=== PATIENT | male | born 1940 | race Caucasian/White ===

== ENCOUNTER 2023-02-24 20:31 | Inpatient (IN) | payer MEDICARE ==
[~2023-02-24] VITALS: Ht 167.6 cm; Wt 62.6 kg
[2023-02-24 20:46] LABS: BASOPHILS ABSOLUTE AUTO 0.08 K/mm3 (0.00-0.23); BASOPHILS PERCENT AUTO 0 % (0-2); EOSINOPHILS ABSOLUTE AUTO 0.01 K/mm3 (0.00-0.68); EOSINOPHILS PERCENT AUTO 0 % (0-6); Hematocrit 49.2 % (37.0-53.0); Hemoglobin 16.9 g/dL (13.5-17.5); IMMATURE GRAN ABSOLUTE AUTO 0.28 K/mm3 (0.00-0.10); IMMATURE GRAN PERCENT AUTO 1 % (0-1); LYMPHOCYTES PERCENT AUTO 3 % (21-46); MONOCYTES ABSOLUTE AUTO 1.16 K/mm3 (0.16-1.47); MONOCYTES PERCENT AUTO 4 % (4-13); Mean Corpuscular HGB 32.9 pg (26.0-34.0); Mean Corpuscular HGB Conc 34.3 g/dL (31.5-36.5); Mean Corpuscular Volume 96 fL (80-100); Mean Platelet Volume 11.3 fL (9.1-12.4); NEUTROPHILS ABSOLUTE AUTO 24.36 K/mm3 (1.96-9.15); NEUTROPHILS PERCENT AUTO 91 % (41-73); Platelet Count 396 K/mm3 (150-400); RDW Coefficient Variation 14.1 % (11.7-14.2); RDW Standard Deviation 49.8 fL (35.1-46.3); Red Blood Cell Count 5.13 M/mm3 (4.30-5.90); White Blood Cell Count 26.69 K/mm3 (4.00-11.30)
[2023-02-24 21:15] LABS: PCO2 Arterial 29.8 mmHg (35-45); PO2 Arterial 233 mmHg (80-100); pH Blood Arterial 7.04 (7.35-7.45)
[2023-02-24 21:18] LABS: Ethanol (Alcohol), Blood, Med <3 mg/dL; Magnesium, Blood 3.8 mg/dL (1.6-2.4)
[2023-02-24 21:24] LABS: Thyroid Stimulating Hormone 0.304 uIU/mL (0.360-4.800)
[2023-02-24 21:29] LABS: Alanine Aminotransfer (ALT/SGP 40 U/L (12-78); Albumin, Blood 3.6 g/dL (3.4-5.0); Albumin/Globulin Ratio 0.8 (0.8-1.8); Alk Phos 116 U/L (50-136); Anion Gap 19 mmol/L (6-16); Aspartate Aminotrans (AST/SGOT 65 U/L (12-37); Bilirubin, Total 0.6 mg/dL (0.1-1.0); Blood Urea Nitrogen 293 mg/dL (8-24); Bun/Creatinine Ratio 14.2 (12.0-20.0); CO2, Blood 11 mmol/L (21-32); CPK Creatine Kinase 1638 U/L (39-308); Calcium, Blood 9.1 mg/dL (8.5-10.1); Chloride, Blood 113 mmol/L (98-108); Globulin, Blood 4.5 g/dL (2.2-4.0); Glomerular Filtration Rate 2 (60-); Glucose, Blood 121 mg/dL (70-99); Potassium, Blood 8.5 mmol/L (3.5-5.5); Sodium, Blood 143 mmol/L (136-145); Total Protein, Blood 8.1 g/dL (6.4-8.2)
[2023-02-24 21:36] LABS: Source, Urine Clean Catch
[2023-02-24 22:13] LABS: Creatine Kinase MB 39.4 ng/mL (0.0-3.6); Creatine Kinase MB Index 2.4 (0.0-4.0)
[2023-02-24 22:19] LABS: Bilirubin, Urine Neg (Neg); Blood, Urine 2+ (Neg); Glucose Qualitative, Urine Neg (Neg); Ketones, Urine Neg (Neg); Leukocyte Esterase, Urine 1+ (Neg); Nitrite, Urine Neg (Neg); Protein, Urine 1+ (Neg); Specific Gravity, Urine 1.015 (1.003-1.022); Urobilinogen, Urine NORM (Normal)
[2023-02-24 22:39] LABS: U Amphetamine Screen DETECTED; U Barbituate Screen Not Detected; U Benzodiazapine Screen Not Detected; U Buprenorphine Screen Not Detected; U Cannabinoids Screen Not Detected; U Cocaine Screen Not Detected; U Methadone Screen Not Detected; U Methamphetamine Screen DETECTED; U Opiates Screen Not Detected; U Oxycodone Screen Not Detected; U Phencyclidine Screen Not Detected; U Propoxyphene Screen Not Detected
[2023-02-24 22:55] LABS: Appearance, Urine Clear (Clear); Color, Urine Yellow (P-Yellow)
[2023-02-24 22:57] LABS: Bacteria Few /hpf; Red Blood Cells, Urine 0-2 /hpf (0-2); Squamous Epithelial Cells Not Seen /hpf (Few)
[2023-02-25] VITALS (32 sets, daily range): BP systolic 101–157; BP diastolic 57–104
[2023-02-25 01:07] LABS: BASOPHILS ABSOLUTE AUTO 0.06 K/mm3 (0.00-0.23); BASOPHILS PERCENT AUTO 0 % (0-2); EOSINOPHILS PERCENT AUTO 0 % (0-6); Hematocrit 44.7 % (37.0-53.0); Hemoglobin 15.5 g/dL (13.5-17.5); IMMATURE GRAN ABSOLUTE AUTO 0.19 K/mm3 (0.00-0.10); IMMATURE GRAN PERCENT AUTO 1 % (0-1); LYMPHOCYTES ABSOLUTE AUTO 0.56 K/mm3 (0.84-5.20); LYMPHOCYTES PERCENT AUTO 2 % (21-46); MONOCYTES PERCENT AUTO 4 % (4-13); Mean Corpuscular HGB 32.4 pg (26.0-34.0); Mean Corpuscular HGB Conc 34.7 g/dL (31.5-36.5); Mean Corpuscular Volume 94 fL (80-100); NEUTROPHILS ABSOLUTE AUTO 27.33 K/mm3 (1.96-9.15); NEUTROPHILS PERCENT AUTO 94 % (41-73); Platelet Count 357 K/mm3 (150-400); RDW Coefficient Variation 14.1 % (11.7-14.2); RDW Standard Deviation 48.9 fL (35.1-46.3); Red Blood Cell Count 4.78 M/mm3 (4.30-5.90); White Blood Cell Count 29.24 K/mm3 (4.00-11.30)
[2023-02-25 01:21] LABS: International Normalized Ratio 1.19; Prothrombin Time Results 12.4 Sec (9.7-11.5)
[2023-02-25 01:44] LABS: Albumin, Blood 3.2 g/dL (3.4-5.0); Albumin/Globulin Ratio 0.8 (0.8-1.8); Bilirubin, Total 0.6 mg/dL (0.1-1.0); Bun/Creatinine Ratio 18.4 (12.0-20.0); Calcium, Blood 9.1 mg/dL (8.5-10.1); Creatinine, Blood 13.5 mg/dL (0.60-1.20); Globulin, Blood 3.9 g/dL (2.2-4.0); Potassium, Blood 5.2 mmol/L (3.5-5.5); Total Protein, Blood 7.1 g/dL (6.4-8.2)
[2023-02-25 02:39] LABS: Source, Urine Foley catheter
[2023-02-25 02:53] LABS: Bilirubin, Urine Neg (Neg); Blood, Urine 5+ (Neg); Glucose Qualitative, Urine Neg (Neg); Ketones, Urine 1+ (Neg); Leukocyte Esterase, Urine Neg (Neg); Nitrite, Urine Neg (Neg); Protein, Urine 1+ (Neg); Urobilinogen, Urine NORM (Normal)
--- NOTE | 2023-02-25 03:04 | NUR ---
ASSUMED CARE PT ARRIVED ON UNIT AT 0143. WILL RESPOND TO NAME BY LOOKING AT THIS RN, BUT DOES NOT TRACK. DOES NOT FOLLOW COMMANDS, LOCALIZES TO PAIN. PT'S FEET ARE BRIGHT RED AND PAINFUL TO PT. TEMP 96.9 VIA TEMPORAL. SPO2 >92% ON RA; MAP >65; HR IN THE 80-90'S. MAZARIEGOS PATENT AND DRAINING TO GRAVITY.
--- NOTE | 2023-02-25 03:07 | NUR ---
UPDATE EXTREMELY LARGE CAST REMOVED BY ARMANDO MIRELES.
[2023-02-25 03:13] LABS: Appearance, Urine Clear (Clear); Color, Urine Yellow (P-Yellow)
[2023-02-25 03:14] LABS: Amorphous Light (0-Heavy); Bacteria Few /hpf; Granular Casts 0-2 /lpf (0); Red Blood Cells, Urine 25-50 /hpf (0-2); Squamous Epithelial Cells Few /hpf (Few); White Blood Cells, Urine 0-2 /hpf (0-5)
[2023-02-25 07:37] LABS: Bun/Creatinine Ratio 21.5 (12.0-20.0); Calcium, Blood 9.1 mg/dL (8.5-10.1); Creatinine, Blood 8.71 mg/dL (0.60-1.20)
[2023-02-25 09:55] LABS: PCO2 Arterial 30.1 mmHg (35-45); PO2 Arterial 76.6 mmHg (80-100); pH Blood Arterial 7.41 (7.35-7.45)
[2023-02-25 10:12] LABS: Osmolality, Serum 415 mos/KG (275-300)
[2023-02-25 10:23] LABS: CPK Creatine Kinase 734 U/L (39-308)
--- NOTE | 2023-02-25 10:27 | NUR ---
PT WILL OPEN HIS EYES AND TURN TO VOICE INITIALLY, BUT HAS HAD NO OTHER RESPONSES TO VERBAL STIMULI. HE MOANS WITH ANY MOVEMENT. NO GAG REFLEX NOTED AND DR. DE OLIVEIRA NOTIFIED. DR. DE OLIVEIRA REQUESTED COMMUNICATIONS CONTROLLER INPUT. DR. PRASAD CONSULTED. PT'S URINE OUTPUT HAS BEEN 800ML OVER THE LAST 2 HOURS, DR. PRASAD AWARE AND GAVE ORDERS TO ADJUST IV FLUIDS TO URINE OUTPUT. LIMITED HISTORY HAS BEEN OBTAINED FROM PT ADMIT 5 YEARS AGO. ATTEMPTED TO CALL THE NUMBER FOR [facility], WHO IS LISTED ON HIS FACESHEET AND WAS ALSO MENTIONED TO BE A CAREGIVER AND HAVE POA IN THE PAST ADMISSION NOTES. THAT NUMBER JUST GOES TO BUSY SIGNAL. NO OTHER NUMBERS FOR RELATIVES/FRIENDS FOUND. ATTEMPTED TO CALL PHARMACY FOR MED LIST, BUT THEY AREN'T ANSWERING THE PHONE EITHER.
[2023-02-25 11:47] LABS: Lithium <0.20 mmol/L (0.60-1.20)
--- NOTE | 2023-02-25 12:20 | NUR ---
REASSESSMENT PT REMAINS ALERT WITH EYES OPEN, BUT ONLY RESPONDS TO TACTILE STIMULI. HE MOANS WITH ANY MOVEMENT OF HIS BODY. HE DOES APPEAR TO HAVE A WEAK GAG NOW AND HE HAS TRIED TO REACH HIS ARM UP TO GET AT THE SPO2 MONITOR ON HIS NOSE. LUNGS ARE CLEAR, RA WITH SPO2 95%. SR, BP STABLE. CONTINUES TO HAVE HIGH URINE OUTPUT, YELLOW. IV FLUIDS BEING TITRATED ACCORDINGLY. PT'S FRIEND/ROOMMATE, LUCHO, CALLED. THIS WAS THE PERSON THAT CALLED THE AMBULANCE, BUT THEY WERE NOT ABLE TO GIVE ANY FURTHER INFORMATION ABOUT PT'S HISTORY OR MEDICATIONS. THEY CONFIRMED THAT [facility] IS PT'S POA, BUT THEY DID NOT HAVE ANY CONTACT INFO FOR THEM. THE NUMBER AVAILABLE STILL IS JUST GIVING A BUSY TONE.
[2023-02-25 13:56] LABS: Albumin, Blood 3.1 g/dL (3.4-5.0); Anion Gap 5 mmol/L (6-16); Blood Urea Nitrogen 139 mg/dL (8-24); Bun/Creatinine Ratio 27.7 (12.0-20.0); CO2, Blood 24 mmol/L (21-32); Calcium, Blood 8.4 mg/dL (8.5-10.1); Chloride, Blood 135 mmol/L (98-108); Creatinine, Blood 5.02 mg/dL (0.60-1.20); Glomerular Filtration Rate 11 (60-); Glucose, Blood 311 mg/dL (70-99); Phosphorus, Blood 4.9 mg/dL (2.5-4.9); Potassium, Blood 3.6 mmol/L (3.5-5.5); Sodium, Blood 164 mmol/L (136-145)
--- NOTE | 2023-02-25 16:52 | NUR ---
SHIFT SUMMARY PT'S MENTATION HAS NOT SIGNIFICANTLY IMPROVED THROUGHOUT THE SHIFT. HE STILL OPENS HIS EYES, BUT JUST MOANS AND DOESN'T FOLLOW ANY COMMANDS. HE HAS A VERY WEAK GAG REFLEX. HOB KEPT ELEVATED THROUGHOUT THE DAY TO HELP PROTECT AIRWAY. LUNGS ARE CLEAR, RA. SR, BP STABLE. STILL HAVING HIGH URINE OUTPUT AND SODIUM LEVELS HIGH. DR. BENITO AND SHANICE AWARE. DR. PRASAD ORDERED TO CONTINUE MATCHING VOLUMES THIS EVENING. NEXT NA CHECK AT 1900. STILL UNABLE TO CONTACT FAMILY OR CAREGIVER.
[2023-02-25 20:09] LABS: Bun/Creatinine Ratio 36.6 (12.0-20.0); Calcium, Blood 8.5 mg/dL (8.5-10.1); Creatinine, Blood 2.62 mg/dL (0.60-1.20); Potassium, Blood 3.4 mmol/L (3.5-5.5)
[2023-02-26] VITALS (24 sets, daily range): BP systolic 89–156; BP diastolic 52–79
[2023-02-26 01:12] LABS: Bun/Creatinine Ratio 41.4 (12.0-20.0); Calcium, Blood 8.5 mg/dL (8.5-10.1); Creatinine, Blood 1.69 mg/dL (0.60-1.20); Potassium, Blood 3.8 mmol/L (3.5-5.5)
[2023-02-26 04:03] LABS: BASOPHILS ABSOLUTE AUTO 0.07 K/mm3 (0.00-0.23); BASOPHILS PERCENT AUTO 0 % (0-2); EOSINOPHILS PERCENT AUTO 0 % (0-6); Hematocrit 43.4 % (37.0-53.0); Hemoglobin 15.2 g/dL (13.5-17.5); IMMATURE GRAN ABSOLUTE AUTO 0.27 K/mm3 (0.00-0.10); IMMATURE GRAN PERCENT AUTO 1 % (0-1); LYMPHOCYTES ABSOLUTE AUTO 1.27 K/mm3 (0.84-5.20); LYMPHOCYTES PERCENT AUTO 5 % (21-46); MONOCYTES ABSOLUTE AUTO 1.28 K/mm3 (0.16-1.47); MONOCYTES PERCENT AUTO 5 % (4-13); Mean Corpuscular HGB 32.7 pg (26.0-34.0); Mean Corpuscular Volume 93 fL (80-100); Mean Platelet Volume 10.9 fL (9.1-12.4); NEUTROPHILS ABSOLUTE AUTO 22.17 K/mm3 (1.96-9.15); NEUTROPHILS PERCENT AUTO 88 % (41-73); NRBC ABSOLUTE 0.04 K/mm3 (0.00-0.02); NRBC Auto 0.2 /100 WBC (0.0-0.2); Platelet Count 243 K/mm3 (150-400); RDW Coefficient Variation 14.1 % (11.7-14.2); RDW Standard Deviation 47.6 fL (35.1-46.3); Red Blood Cell Count 4.65 M/mm3 (4.30-5.90); White Blood Cell Count 25.06 K/mm3 (4.00-11.30)
[2023-02-26 04:15] LABS: International Normalized Ratio 1.35; Prothrombin Time Results 13.9 Sec (9.7-11.5)
[2023-02-26 04:26] LABS: Albumin, Blood 2.9 g/dL (3.4-5.0); Albumin/Globulin Ratio 0.8 (0.8-1.8); Bilirubin, Direct 0.2 mg/dL (0.0-0.3); Bilirubin, Indirect 0.6 mg/dL (0.1-0.7); Bilirubin, Total 0.8 mg/dL (0.1-1.0); Bun/Creatinine Ratio 42.7 (12.0-20.0); Calcium, Blood 8.6 mg/dL (8.5-10.1); Creatinine, Blood 1.5 mg/dL (0.60-1.20); Globulin, Blood 3.5 g/dL (2.2-4.0); Magnesium, Blood 2.5 mg/dL (1.6-2.4); Phosphorus, Blood 2.1 mg/dL (2.5-4.9); Potassium, Blood 3.9 mmol/L (3.5-5.5); Total Protein, Blood 6.4 g/dL (6.4-8.2)
--- NOTE | 2023-02-26 06:19 | NUR ---
YSHIFT SUMMARY: NO ACUTE CHANGES THROUGHOUT THE NIGHT. PT REMAINS AMS WITH RESPONSE TO VERBAL STIMULI BY OPENING EYES AND TRACKING IN THE ROOM; PT NOT ABLE TO FOLLOW ANY DIRECTIONS OR PARTICIPATE IN CONVERSATION. PT MOANS INTERMITTENLY AND PRODUCES NO WORDS. PT STARTED THE NIGHT ON RA AND MAINTAINED SPO2 96<; PT DESATS DOWN TO 86-88, NC PLACED AND @ 4LPM IN MOUTH WHILE PT IS SLEEPING AND SPO2 98<. SR ON MONITOR WITH HR 60-70'S AND SBP 100-110. PT HAS HYPOACTIVE BS AND NO N/V NOTED; PT HAS NOT HAD A BM THIS SHIFT. PT HAS TEMP MAZARIEGOS IN PLACE THAT IS DRAINING TO GRAVITY; CHRIS URINE, POLYURIA, AND URINE OUTPUT THIS SHIFT AT 1150. PT SKIN IS FRAGILE WITH SCATTER BRUISES AND WARM TEMP. PIV X 2 TO R. ARM. SODIUM DOWN TO 159 WITH THIS MORNING LABS. BED LOWERED, CALL LIGHT IN REACH, WILL CONTINUE TO MONITOR UNTIL ONCOMING RN ARRIVES.
--- NOTE | 2023-02-26 09:36 | NUR ---
ASSUMED CARE OF KENDALL AT 0700, HE IS NONVERBAL. HE IS NOT LOOKING AT ME OR FOLLOWING COMMANDS. HE MAKES NO SOUNDS. HE IS TURNED AND MOVED AND REPOSITIONED WITHOUT SOUND. HE HAS CONGESTED COUGH NON PRODUCTIVE. HE HAS A FOUL AROMA. HIS FINGERNAILS AND TOE NAILS ARE BLACK, FINGERNAILS CLEANED WITH ALCOHOL WIPES AND BROWN STUFF REMOVED FROM ALL 10. PT WITH PROTECTIVE RESPONSES TO TOUCH, ARMS CROSSING, SHOULDERS COVERED, ETC. BUT NON VERBAL. CATHETER WITH BROWN DISCHARGE, DARK YELLOW RETURN. IV X 3 IN RIGHT FOREARM. BP STABLE.
--- NOTE | 2023-02-26 10:47 | NUR ---
DOCTOR IN ROOM AT 0930 SPEAKING WITH PATIENT. WHEN DOCTOR ASKED IF PATIENT COULD HEAR HIM HE VERBALLY RESPONDED "YES", WHEN DOCTOR ASKED IF PATIENT WAS IN PAIN THE PATIENT VERBALLY RESPONDED "NO". THE PATIENT HAS NOT VERBALLY RESPONDED WHEN ASKED QUESTIONS BY THIS TURKEY PINNER.
--- NOTE | 2023-02-26 11:49 | NUR ---
IN ROOM WITH PATIENT AND RN, THE PATIENT WOULD LOOK AT ME WHEN QUED TO TO. THE PATIENT GROANED WHEN ASKED IF HE WAS IN ANY PAIN. ORAL CARE PERFORMED, THE PATIENT WAS RESISTANT TO OPEN MOUTH.
--- NOTE | 2023-02-26 15:50 | NUR ---
IN ROOM WITH RN, PATIENT OCCASIONALLY ANSWERED YES OR NO QUESTIONS. PATIENT ANSWERED THAT HE WAS IN THE HOSPITAL WHEN ASKED BY NURSE WHERE HE WAS. PATIENT FOLLOWED VERBAL COMMAND TO LOOK AT THIS STUDENT NURSE WHEN ASKED TO. WILL CONTINUE TO MONITOR PATIENT.
--- NOTE | 2023-02-26 17:57 | NUR ---
SHIFT SUMMARY PT'S MENTAL STATUS HAS IMPROVED THE DAY HAS PROGRESSED. HE HAS OCCASIONALLY ANSWERED YES OR NO QUESTIONS REGARDING WHERE HE IS, IF HE IS IN PAIN, AND IF HE CAN HEAR WHO IS TALKING TO HIM. PT WILL ANSWER ONE OR TWO QUESTIONS AND THEN MOAN WHEN ASKED MORE QUESTIONS. PT WAS ON 4L N/C AT THE BEGINNING OF THE SHIFT AND IS NOW ON ROOM AIR AT 96%. PT CONTINUES TO HAVE HYPOACTIVE BOWEL SOUNDS AND HAS NOT HAD A BM THIS SHIFT. PT IS STILL NPO. PT HAS A TEMP MAZARIEGOS THAT IS PATENT AND DRAINING TO GRAVITY. PT'S URINE OUTPUT HAS GONE DOWN COMPARED TO NOC SHIFT, 960 mL FOR THIS SHIFT. PT HAS 3 PIVS IN HIS RIGHT ARM. THE PATIENT'S BED IS LOWERED, HIS BED ALARM IS ON, AND HIS CALL LIGHT IS IN REACH. WILL CONTINUE TO MONITOR UNTIL CARE IS ASSUMED BY [facility] SHIFT NURSE.
--- NOTE | 2023-02-26 18:29 | NUR ---
I CONCUR WITH NOTES AND ASSESSMENTS MADE BY BUTTON PUSHER JAGUAR MEDEL, WHILST CARING FOR THIS PATIENT. WE HAVE PERFORMED HIS CARE TOGETHER T/O THE DAY. CHARTING HAS BEEN DONE TOGETHER T/O THE SHIFT.
--- NOTE | 2023-02-26 22:53 | NUR ---
ASSUMPTION OF CARE/ASSESSMENT: ASSUMED CARE OF PT AT 1900. PT LAYING IN BED AND ALERTNESS APPEARS TO HAVE IMPROVED THROUGHOUT THE DAY. PT IS ALERT AND RESPONSIVE TO VERBAL STIMULI; HE WAS ABLE TO SAY HELLO AFTER BEING GREETED BY THIS RN, THEN WHEN ASKED IF HE WAS IN ANY PAIN THE PT STATED "NO" . PT STILL NOT ABLE TO ANSWER ORIENTING QUESTIONS AND IS NOT FOLLOWING COMMANDS. PT ON RA WITH CLEAR LUNG SOUNDS, DIM BASES; SPO2 98<, RR 18-22. SR ON MONITOR WITH HR 70-80'S AND SBP 120'S. PT HAS HYPOACTIVE BS, ABD FLAT, AND NON-TENDER, AND REMAINS NPO AT THIS TIME. TEMP MAZARIEGOS IN PLACE AND DRAINING TO GRAVITY; CHRIS URINE. PPP X 4, SKIN WARM. BED LOWERED, CALL LIGHT IN REACH, WILL CONTINUE TO MONITOR.
[2023-02-27] VITALS (23 sets, daily range): BP systolic 103–167; BP diastolic 49–130
[2023-02-27 01:45] LABS: Calcium, Ionized (POC) 1.14 mmol/L (1.10-1.46); Chloride (POC) 124 mmol/L (98-108); Creatinine (POC) 17.3 mg/dL (0.8-1.3); Glucose (ISTAT POC) 201 mg/dL (70-99); Hemoglobin (POC) 16.7 g/dL (13.5-17.5); Potassium (POC) 5.7 mmol/L (3.5-5.5); Sodium (POC) 152 mmol/L (135-148); Total CO2 (POC) 13 mmol/L (21-32)
[2023-02-27 03:46] LABS: BASOPHILS ABSOLUTE AUTO 0.08 K/mm3 (0.00-0.23); BASOPHILS PERCENT AUTO 0 % (0-2); EOSINOPHILS ABSOLUTE AUTO 0.24 K/mm3 (0.00-0.68); EOSINOPHILS PERCENT AUTO 1 % (0-6); Hematocrit 39.3 % (37.0-53.0); Hemoglobin 13.2 g/dL (13.5-17.5); IMMATURE GRAN ABSOLUTE AUTO 0.27 K/mm3 (0.00-0.10); IMMATURE GRAN PERCENT AUTO 1 % (0-1); LYMPHOCYTES ABSOLUTE AUTO 2.86 K/mm3 (0.84-5.20); LYMPHOCYTES PERCENT AUTO 9 % (21-46); MONOCYTES ABSOLUTE AUTO 1.84 K/mm3 (0.16-1.47); MONOCYTES PERCENT AUTO 6 % (4-13); Mean Corpuscular HGB 32.6 pg (26.0-34.0); Mean Corpuscular HGB Conc 33.6 g/dL (31.5-36.5); Mean Corpuscular Volume 97 fL (80-100); Mean Platelet Volume 11.8 fL (9.1-12.4); NEUTROPHILS ABSOLUTE AUTO 26.41 K/mm3 (1.96-9.15); NEUTROPHILS PERCENT AUTO 83 % (41-73); NRBC ABSOLUTE 0.11 K/mm3 (0.00-0.02); NRBC Auto 0.3 /100 WBC (0.0-0.2); Platelet Count 191 K/mm3 (150-400); RDW Coefficient Variation 14.6 % (11.7-14.2); RDW Standard Deviation 51.9 fL (35.1-46.3); Red Blood Cell Count 4.05 M/mm3 (4.30-5.90)
[2023-02-27 04:38] LABS: Magnesium, Blood 1.6 mg/dL (1.6-2.4)
[2023-02-27 04:49] LABS: Bun/Creatinine Ratio 27.5 (12.0-20.0); Creatinine, Blood 0.77 mg/dL (0.60-1.20); Phosphorus, Blood 1.6 mg/dL (2.5-4.9); Potassium, Blood 3.4 mmol/L (3.5-5.5)
--- NOTE | 2023-02-27 06:31 | NUR ---
SHIFT SUMMARY: NO ACUTE CHANGES OVER NIGHT. PT WAS ABLE TO SLEEP FOR A LITTLE BIT. VSS THROUGHOUT THE NIGHT. PT CONTINUOUSLY PULLED OFF EKG LEAD AND PULSE OX AND THEN ATTEMPTED TO PULL OFF IV'S; PT PLACED IN MITTEN RESTRAINTS TO PROTECT LINES/CORDS. PT MENTATION REMAINS THE SAME. NA THIS MORNING DROPPED FROM 159 TO 147. URINE OUTPUT THIS SHIFT AT 550 MLS. BED LOWERED, CALL LIGHT IN REACH, WILL CONTINUE TO MONITOR UNTIL ONCOMING RN ARRIVES.
--- NOTE | 2023-02-27 08:00 | NUR ---
INITIAL ASSESSMENT PATIENT ALERT; ORIENTED TO SELF AND FOLLOWING SOME COMMANDS. PATIENT FLAT AND WITHDRAWN. PATIENT WEAK BUT ABLE TO MOVE ALL EXTREMITIES. PATIENT HAS TEMP OF 100.6 DEGREES FAHRENHEIT THIS SHIFT. MITTENS ON PATIENT TRIES TO PULL AT LINES AND CORDS. PATIENT HAS OCCASIONAL NONPRODUCTIVE COUGH. PATIENT IN SR, HR 60S TO 70S. SBP 120S TO 130S. HYPERACTIVE BOWEL SOUNDS NOTED. DATE OF LAST BM UNKNOWN. MAZARIEGOS DRAINING CHRIS COLORED URINE. SKIN DRY, FRAGILE, PALE, BRUISED. REDDENED HANDS, FEET, COCCYX NOTED. PLAQUE NOTED IN MOUTH. SCAB TO R INDEX FINGER. D5 INFUSING AT 200 MLS/ HOUR. BED LOW, CALL LIGHT IN REACH. WILL CONTINUE TO MONITOR PATIENT FREQUENTLY THROUGHOUT SHIFT.
--- NOTE | 2023-02-27 12:33 | NUR ---
PATIENT TEMP OF 99.4 DEGREES FAHRENHEIT. PATIENT WAS ABLE TO STATE NAME THIS TIME INSTEAD OF JUST SAYING "YES" WHEN ASKED IF NAME WAS KENDALL; OTHERWISE NEURO STATUS REMAINS UNCHANGED. HR IN THE 70S. SBP IN THE 140S. NO OTHER ACUTE CHANGES TO NOTE ON AT THIS TIME. NO SIGNS OF PAIN OR DISCOMFORT NOTED. WILL CONTINUE TO MONITOR.
--- NOTE | 2023-02-27 14:49 | NUR ---
DR. BENITO UPDATED ON PATIENT STATUS. NO ORDERS RECEIVED AT THIS TIME.
--- NOTE | 2023-02-27 16:45 | NUR ---
PATIENT HAS TEMP OF 99.8 DEGREES FAHRENHEIT. HR IN THE 70S. SBP IN THE 120S. BLOOD SUGAR 117. COMPLETE BED BATH PERFORMED. NO OTHER ACUTE CHANGES TO NOTE ON AT THIS TIME. WILL CONTINUE TO MONITOR.
[2023-02-27 17:20] LABS: Bun/Creatinine Ratio 21.6 (12.0-20.0); Calcium, Blood 8.8 mg/dL (8.5-10.1); Creatinine, Blood 0.7 mg/dL (0.60-1.20); Phosphorus, Blood 3.1 mg/dL (2.5-4.9); Potassium, Blood 3.7 mmol/L (3.5-5.5)
--- NOTE | 2023-02-27 18:54 | NUR ---
SHIFT SUMMARY PATIENT NAPPED ON AND OFF THROUGHOUT SHIFT. PATIENT REMAINED LETHARGIC. PATIENT REMAINS ORIENTED TO SELF AND FOLLOWING SOME COMMANDS. PATIENT HAD TMAX OF 100.6 DEGREES FAHRENHEIT. PATIENT HAD NO SIGNS OF PAIN T/O SHIFT. PATIENT REMAINED WEAK BUT ABLE TO MOVE ALL EXTREMITIES AND HELP A LITTLE WITH TURNS. MITTENS REMAINED ON PATIENT CONTINUED TO TRY AND PICK AT LINES AND CORDS. PATIENT REMAINED WITHDRAWN AND WITH FLAT AFFECT. PATIENT REMAINED SATTING 90% AND GREATER ON RA. PATIENT SB TO SR, HR 50S TO 70S. SBP LOW 100S TO 140S. 2050 MLS OF YELLOW COLORED URINE OUT FROM MAZARIEGOS. NO CHANGES TO SKIN NOTED. PATIENT REPOSTIONED Q2H. COMPLETE BED BATH PERFORMED. D5 DECREASED FROM 200 MLS/ HOUR TO 100 MLS/ HOUR AND THEN AGAIN TO 50 MLS/ HOUR BY THE END OF THE SHIFT. PATIENT RECEIVED 30 MM KPHOS AND 2 G CALCIUM REPLACEMENTS THIS SHIFT. DENTAL HYGEINIST SAW PATIENT TODAY. SPEECH THERAPY SAW PATIENT TODAY BUT PATIENT WAS UNABLE TO PERFORM SWALLOW EVAL. BLOOD SUGARS 84, 96 AND 117 THIS SHIFT. PATIENT APPEARS COMFORTABLE AT THIS TIME. BED LOW, CALL LIGHT IN REACH. REPORT WILL BE GIVEN TO ASSUMING DIRECT MARKETING EXECUTIVE NURSE SHORTLY.
--- NOTE | 2023-02-27 20:00 | NUR ---
ASSUMED CARE PT IS CONFUSED, BUT WAS ABLE TO TELL THIS NURSE THAT HE WAS IN THE HOSPITAL AND GIVE AN ACCURATE BIRTHDATE; RESPONDED W/ I DON'T KNOW TO THE REST OF ORIENTATION QUESTIONS. DOES NOT FOLLOW COMMANDS WELL. SPO2 >92% ON RA; MAP >65. D5 RUNNING AT 50MLS/HR. PT APPEARS TO BE SENSITIVE TO ANY KIND OF INTERVENTION/REPOSITIONING AND PREFERS TO BE LEFT ALONE. T-MAX THIS SHIFT IS 100.0F. MAZARIEOGS CATHETER PATENT AND DRAINING TO GRAVITY.
[2023-02-28] VITALS (15 sets, daily range): BP systolic 89–130; BP diastolic 52–67
[2023-02-28 04:15] LABS: BASOPHILS PERCENT AUTO 0 % (0-2); EOSINOPHILS PERCENT AUTO 1 % (0-6); Hematocrit 38.3 % (37.0-53.0); Hemoglobin 13.1 g/dL (13.5-17.5); IMMATURE GRAN ABSOLUTE AUTO 0.39 K/mm3 (0.00-0.10); IMMATURE GRAN PERCENT AUTO 1 % (0-1); LYMPHOCYTES ABSOLUTE AUTO 2.16 K/mm3 (0.84-5.20); LYMPHOCYTES PERCENT AUTO 6 % (21-46); MONOCYTES ABSOLUTE AUTO 1.93 K/mm3 (0.16-1.47); MONOCYTES PERCENT AUTO 5 % (4-13); Mean Corpuscular HGB 32.8 pg (26.0-34.0); Mean Corpuscular HGB Conc 34.2 g/dL (31.5-36.5); Mean Corpuscular Volume 96 fL (80-100); NEUTROPHILS ABSOLUTE AUTO 32.22 K/mm3 (1.96-9.15); NEUTROPHILS PERCENT AUTO 87 % (41-73); NRBC ABSOLUTE 0.19 K/mm3 (0.00-0.02); NRBC Auto 0.5 /100 WBC (0.0-0.2); Platelet Count 206 K/mm3 (150-400); RDW Coefficient Variation 13.9 % (11.7-14.2); RDW Standard Deviation 49.1 fL (35.1-46.3)
[2023-02-28 04:33] LABS: Bun/Creatinine Ratio 20.5 (12.0-20.0); Calcium, Blood 7.9 mg/dL (8.5-10.1); Creatinine, Blood 0.63 mg/dL (0.60-1.20); Magnesium, Blood 1.4 mg/dL (1.6-2.4); Phosphorus, Blood 1.8 mg/dL (2.5-4.9); Potassium, Blood 3.1 mmol/L (3.5-5.5)
--- NOTE | 2023-02-28 05:05 | NUR ---
SHIFT SUMMARY NO ACUTE EVENTS OVERNIGHT. PT'S NEURO STATUS APPEARS TO BE THE SAME SINCE LAST NOTE; OCCASIONALLY WILL FOLLOW COMMANDS. PT REMAINS ON RA. MAZARIEGOS CATHETER IS PATENT AND DRAINING TO GRAVITY.
--- NOTE | 2023-02-28 08:00 | NUR ---
INITIAL ASSESSMENT PATIENT ALERT AND ORIENTED TO SELF, TOWN, AND HOSPITAL. PATIENT STATES THE YEAR IS [birth year]. PATIENT ABLE TO FOLLOW SOME SIMPLE COMMANDS. PATIENT IS WEAK BUT ABLE TO MOVE ALL EXTREMITIES. PATIENT FLAT AND WITHDRAWN. MITTENS OFF PATIENT NOT TRYING TO PULL AT LINES OR CORDS AT THIS TIME. PATIENT HAS TEMP OF 100.4 DEGREES FAHRENHEIT. PATIENT DENIES PAIN. PATIENT SATTING 90% AND GREATER ON RA. PATIENT SR WITH PACS, HR 60S TO 70S. SBP 90S TO 1-TEENS. HYPERACTIVE BOWEL SOUNDS NOTED. SWALLOW EVAL THIS AM. MAZARIEGOS DRAINING CHRIS COLORED URINE. SKIN DRY, FRAGILE, BRUISED. REDDENED HANDS, FEET AND COCCYX. D5 INFUSING AT 50 MLS/ HOUR. PATIENT RECEIVING MAG AND KPHOS REPLACEMENTS THIS AM. BS 105 THIS AM. BED LOW, CALL LIGHT IN REACH. WILL CONTINUE TO MONITOR PATIENT FREQUENTLY THIS SHIFT.
--- NOTE | 2023-02-28 08:30 | NUR ---
DR. MAO UPDATED ON PATIENT STATUS. INFORMED THAT PATIENT HAD TMAX OF 100.6 ON LIVESTOCK NUTRITIONIST. INFORMED THAT PATIENT RECEIVING MAG AND KPHOS REPLACEMENTS AT THIS TIME. INFORMED THAT WBC INCREASED TODAY. HAD DR. MAO ACCESS WOUND ON R INDEX FINGER. INFORMED THAT D5 REMAINS AT 50 MLS/ HOUR. INFORMED THAT IONIZED CALCIUM 10.4 THIS AM. INFORMED THAT SPEECH SAW PATIENT AND PLACED ON MECHANICAL SOFT DIET AT THIS TIME.
--- NOTE | 2023-02-28 10:33 | NUR ---
RECORDS TRIED TO OBTAIN RECORDS FROM [facility]. [facility] STATED THAT PATIENT HAD NOT BEEN SEEN THERE SINCE 2017 AND WAS ONLY SEEN OT IN THE URGENT CARE. INFORMED THAT MARKUS BA NOW AT [facility] [place] AND MAYBE THEY WOULD HAVE MORE RECORDS. AUTHORIZATION FOR USE OR DISCLOSURE OF PHI FAXED TO [facility] FOR PATIENT RECORDS.
--- NOTE | 2023-02-28 12:33 | NUR ---
PATIENT HAS TEMP OF 99.6 DEGREES FAHRENHEIT. NEURO STATUS UNCHANGED FROM THIS AM. HR 50S TO 60S. SBP 1-TEENS TO 130S. BLOOD SUGAR 116. PATIENT EATING MECHANICAL SOFT DIET AT THIS TIME. NO OTHER ACUTE CHANGES TO NOTE ON AT THIS TIME. WILL CONTINUE TO MONITOR.
--- NOTE | 2023-02-28 14:45 | NUR ---
SHIFT SUMMARY PATIENT HAS NAPPED ON AND OFF THROUGHOUT SHIFT. PATIENT MENTATION CONTINUEST TO IMPROVE. PATIENT ORIENTED TODAY TO SELF, TOWN, HOSPITAL, AND FOLLOWING SOME SOMPLE COMMANDS. PATIENT LETHARGIC AND THEREFORE DOES NOT HAVE MUCH MOTIVATION. PATIENT HAD TMAX OF 100.7 DEGREES FAHRENHEIT THIS SHIFT. PATIENT HAD NO COMPLAINTS OF PAIN. MITTENS REMOVED THIS AM AND PATIENT DID NOT TRY TO PULL AT ANY LINES OR CORDS. PATIENT REMAINED SATTING 90% AND GREATER ON RA. PATIENT SB TO SR WITH PACS, HR 50S TO 70S. SBP 80S TO 130S. NO BM THIS SHIFT. PATIENT PLACED ON MECHANICAL SOFT DIET THIS AM AND TOLERATED WELL, HOWEVER DOES NOT HAVE MUCH OF AN APPETITE. MAZARIEGOS REMAINED DRAINING CHRIS COLORED URINE. PATIENT TO BE BLADDER TRAINED AND MAZARIEGOS REMOVED. NO CHANGES TO SKIN NOTED. PATIENT REPOSITIONED Q2H. D5 REMAINS INFUSING AT 50 MLS/ HOUR. BLOOD SUGARS 105 AND 116 THIS SHIFT. PATIENT RECEIVED 2 G MAG AND 30 MM KPHOS THIS AM FOR REPLACEMENT. PT AND OT WORKED WITH PATIENT THIS SHIFT. REQUEST FAXED TO [facility] FOR PATIENT RECORDS. PATIENT HAS BEEN SUCCESSFULLY TRANSFERRED TO MEDICAL FLOOR, ROOM 352. ALL BELONGINGS SENT WITH PATIENT.
[2023-03-01 02:18] VITALS: BP 118/60
--- NOTE | 2023-03-01 05:13 | NUR ---
SUMMARY: BLADDER TRAINED PATIENT OVERNIGHT AND REMOVED MAZARIEGOS AT 0230. PATIENT VERBALIZED THAT HE NEEDED TO VOID BOTH TIMES CATHETER WAS CLAMPED. PATIENT AGITATED WITH STAFF WE WOULD NOT ALLOW HIM TO WALK TO RESTROOM. PATIENT STILL CONFUSED AOX2. PATIENT VERY WEAK 2X ASSIST TO TURN HIM IN BED. REPOSITIONED Q2 THROUGHOUT NIGHT. NO FEVERS, VSS. PROVIDED PATIENT URINAL THIS MORNING AFTER MAZARIEGOS REMOVEAL AND INSTRUCTED HIM TO URINATE IN IT WHEN HE FELT THE NEED TO. PATIENT STATED HE WOULD NOT, WHEN STAFF ASKING HIM WHY HE STATED BECAUSE HE DID NOT WANT TO. WILL CONTINUE TO REDIRECT AND EDUCATE. GLUCOSE STABLE CHECKED Q4HR.
[2023-03-01 06:17] LABS: BASOPHILS ABSOLUTE AUTO 0.08 K/mm3 (0.00-0.23); BASOPHILS PERCENT AUTO 0 % (0-2); EOSINOPHILS ABSOLUTE AUTO 0.68 K/mm3 (0.00-0.68); EOSINOPHILS PERCENT AUTO 3 % (0-6); Hematocrit 37.4 % (37.0-53.0); Hemoglobin 12.6 g/dL (13.5-17.5); IMMATURE GRAN ABSOLUTE AUTO 0.45 K/mm3 (0.00-0.10); IMMATURE GRAN PERCENT AUTO 2 % (0-1); LYMPHOCYTES ABSOLUTE AUTO 3.35 K/mm3 (0.84-5.20); LYMPHOCYTES PERCENT AUTO 13 % (21-46); MONOCYTES PERCENT AUTO 8 % (4-13); Mean Corpuscular HGB Conc 33.7 g/dL (31.5-36.5); Mean Corpuscular Volume 98 fL (80-100); Mean Platelet Volume 12.5 fL (9.1-12.4); NEUTROPHILS ABSOLUTE AUTO 18.64 K/mm3 (1.96-9.15); NEUTROPHILS PERCENT AUTO 74 % (41-73); NRBC ABSOLUTE 0.17 K/mm3 (0.00-0.02); NRBC Auto 0.7 /100 WBC (0.0-0.2); Platelet Count 235 K/mm3 (150-400); RDW Standard Deviation 49.9 fL (35.1-46.3); Red Blood Cell Count 3.82 M/mm3 (4.30-5.90)
[2023-03-01 06:40] LABS: Albumin, Blood 2.2 g/dL (3.4-5.0); Albumin/Globulin Ratio 0.6 (0.8-1.8); Bilirubin, Total 0.7 mg/dL (0.1-1.0); Bun/Creatinine Ratio 16.8 (12.0-20.0); Calcium, Blood 8.3 mg/dL (8.5-10.1); Creatinine, Blood 0.71 mg/dL (0.60-1.20); Globulin, Blood 3.8 g/dL (2.2-4.0); Magnesium, Blood 1.7 mg/dL (1.6-2.4); Phosphorus, Blood 1.5 mg/dL (2.5-4.9); Potassium, Blood 2.8 mmol/L (3.5-5.5)
[2023-03-01 08:09] VITALS: BP 119/60
[2023-03-01 15:34] VITALS: BP 117/56
--- NOTE | 2023-03-01 16:46 | NUR ---
SHIFT SUMMARY PATIENT IS ALERT BUT NOT ORIENTED. PATIENT HAS HAD NO ACUTE EVENTS THIS SHIFT. VITAL SIGNS REVIEWED. PATIENT HAD FLUIDS STOPPED BY DR MAO. PATIENT HAS NOT COMPLAINED OF PAIN, NAUSEA, SOB OR VOMITTING. BED IN LOCKED AND LOWEST POSITION. CALL LIGHT IN PLACE. WILL MONITOR UNTIL SHIFT CHANGE.
[2023-03-01 20:08] VITALS: BP 115/59
--- NOTE | 2023-03-02 05:22 | NUR ---
SHIFT SUMMARY PT IS A&O 2, 2 PERSON ASSIST TO COMMODE, RA, VSS, NO COMPLAINTS OF PAIN OR DISCOMFORT THIS SHIFT OR ACUTE OVERNIGHT EVENTS CONTINUE POC
[2023-03-02 06:32] LABS: Calcium, Blood 8.3 mg/dL (8.5-10.1); Creatinine, Blood 0.71 mg/dL (0.60-1.20); Phosphorus, Blood 1.5 mg/dL (2.5-4.9)
[2023-03-02 07:19] VITALS: BP 111/61
[2023-03-02 14:11] LABS: IMMUNOGLOBULIN A, QN, SERUM 447 mg/dL (61-437); IMMUNOGLOBULIN G, QN, SERUM 938 mg/dL (603-1613); IMMUNOGLOBULIN M, QN, SERUM 151 mg/dL (15-143)
[2023-03-02 15:09] VITALS: BP 144/77
[2023-03-02 15:55] LABS: Source, Urine Foley catheter
[2023-03-02 16:00] LABS: Appearance, Urine Clear (Clear); Bilirubin, Urine Neg (Neg); Blood, Urine 2+ (Neg); Color, Urine Yellow (P-Yellow); Glucose Qualitative, Urine Neg (Neg); Ketones, Urine Neg (Neg); Leukocyte Esterase, Urine Neg (Neg); Nitrite, Urine Neg (Neg); Protein, Urine 1+ (Neg); Urobilinogen, Urine NORM (Normal)
[2023-03-02 16:09] LABS: Bacteria Few /hpf; Squamous Epithelial Cells Rare /hpf (Few)
[2023-03-02 19:27] VITALS: BP 113/56
--- NOTE | 2023-03-02 21:12 | NUR ---
SHIFT SUMMARY: PATIENT WAS ALERT AND ABLE TO ANSWER QUESTIONS APPROPRIATELY, BUT HAD TO BE SPOKEN TO LOUD/WITH A DEEP VOICE WITH HOW [place] THE PATIENT IS. PATIENT WAS STRAIGHT CATHED ON NIGHTSHIFT ONCE AND AGAIN ON DAYSHIFT. AFTER SECOND STRAIGHT CATHING OF PATIENT THIS NURSE CALLED DR. RAMOS FOR AN ORDER FOR A MAZARIEGOS SINCE PATIENT HAS NO SENSATION OF A FULL BLADDER AND IS UNABLE TO VOID HIMSELF. DR. RAMOS ORDERED A RENAL ULTRASOUND TO RULE OUT AN ENLARGED PROSTATE FIRST BEFORE PLACING A MAZARIEGOS. THIS NURSE READ THE RESULTS FROM THE ULTRASOUND TO DR. RAMOS ON THE PHONE AND SHE SAID TO PLACE THE MAZARIEGOS. MAZARIEGOS IS DRAINING PER GRAVITY WITH DARK CHRIS URINE WITH SEDIMENT. PATIENT TOLERATES SMALL AMOUNTS OF LIQUID INTAKE. PATIENT WAS ABLE TO WORK WITH PT AND DID SIT IN THE RECLINER FOR LUNCH. THIS NURSE ALSO REQUESTED AND RECIEVED ORDERS FOR BOWEL SUPPORT SINCE PATIENT WAS COMPLAINING OF "A HARD POOP UP THERE". PATIENTS DAUGHTER WAS ABLE TO COME BY AND SEE THE PATIENT WHICH MADE THE PATIENT SMILE. PATIENT IS LAYING IN BED WITH CALL LIGHT IN REACH.
[2023-03-03 04:40] VITALS: BP 127/68
[2023-03-03 05:01] LABS: BASOPHILS ABSOLUTE AUTO 0.07 K/mm3 (0.00-0.23); BASOPHILS PERCENT AUTO 0 % (0-2); EOSINOPHILS ABSOLUTE AUTO 0.62 K/mm3 (0.00-0.68); EOSINOPHILS PERCENT AUTO 4 % (0-6); Hematocrit 38.9 % (37.0-53.0); Hemoglobin 12.7 g/dL (13.5-17.5); IMMATURE GRAN ABSOLUTE AUTO 0.32 K/mm3 (0.00-0.10); IMMATURE GRAN PERCENT AUTO 2 % (0-1); LYMPHOCYTES ABSOLUTE AUTO 2.81 K/mm3 (0.84-5.20); LYMPHOCYTES PERCENT AUTO 16 % (21-46); MONOCYTES ABSOLUTE AUTO 1.58 K/mm3 (0.16-1.47); MONOCYTES PERCENT AUTO 9 % (4-13); Mean Corpuscular HGB 32.5 pg (26.0-34.0); Mean Corpuscular HGB Conc 32.6 g/dL (31.5-36.5); Mean Corpuscular Volume 100 fL (80-100); Mean Platelet Volume 11.9 fL (9.1-12.4); NEUTROPHILS ABSOLUTE AUTO 12.45 K/mm3 (1.96-9.15); NEUTROPHILS PERCENT AUTO 70 % (41-73); Platelet Count 420 K/mm3 (150-400); RDW Coefficient Variation 13.9 % (11.7-14.2); RDW Standard Deviation 50.4 fL (35.1-46.3); Red Blood Cell Count 3.91 M/mm3 (4.30-5.90); White Blood Cell Count 17.85 K/mm3 (4.00-11.30)
[2023-03-03 05:18] LABS: Albumin, Blood 2.2 g/dL (3.4-5.0); Anion Gap 0 mmol/L (6-16); Blood Urea Nitrogen 22 mg/dL (8-24); Bun/Creatinine Ratio 36.2 (12.0-20.0); CO2, Blood 28 mmol/L (21-32); Calcium, Blood 8.4 mg/dL (8.5-10.1); Chloride, Blood 115 mmol/L (98-108); Creatinine, Blood 0.61 mg/dL (0.60-1.20); Glomerular Filtration Rate 97 (60-); Glucose, Blood 99 mg/dL (70-99); Magnesium, Blood 1.9 mg/dL (1.6-2.4); Phosphorus, Blood 1.7 mg/dL (2.5-4.9); Potassium, Blood 3.3 mmol/L (3.5-5.5); Sodium, Blood 143 mmol/L (136-145)
[2023-03-03 07:17] VITALS: BP 128/64
[2023-03-03 16:09] VITALS: BP 111/60
--- NOTE | 2023-03-03 16:58 | NUR ---
SHIFT SUMMARY NO ACUTE CHANGES DURING SHIFT. PT ALERT TO SELF, [place], VERY LIMITED RESPONSES. PT REMAINS ON RA, X 2 ASSIST TO CHAIR. MAZARIEGOS IN PLACE, DRAINING TO GRAVITY. ACCUCHECKS D/C'D. WILL CONTINUE TO MONITOR. CALL LIGHT WITHIN REACH.
[2023-03-03 19:22] VITALS: BP 128/67
[2023-03-04 04:55] LABS: BASOPHILS ABSOLUTE AUTO 0.09 K/mm3 (0.00-0.23); BASOPHILS PERCENT AUTO 1 % (0-2); EOSINOPHILS ABSOLUTE AUTO 0.83 K/mm3 (0.00-0.68); EOSINOPHILS PERCENT AUTO 5 % (0-6); Hematocrit 37.3 % (37.0-53.0); Hemoglobin 12.2 g/dL (13.5-17.5); IMMATURE GRAN ABSOLUTE AUTO 0.23 K/mm3 (0.00-0.10); IMMATURE GRAN PERCENT AUTO 1 % (0-1); LYMPHOCYTES ABSOLUTE AUTO 2.59 K/mm3 (0.84-5.20); LYMPHOCYTES PERCENT AUTO 16 % (21-46); MONOCYTES ABSOLUTE AUTO 1.46 K/mm3 (0.16-1.47); MONOCYTES PERCENT AUTO 9 % (4-13); Mean Corpuscular HGB 32.7 pg (26.0-34.0); Mean Corpuscular HGB Conc 32.7 g/dL (31.5-36.5); Mean Corpuscular Volume 100 fL (80-100); Mean Platelet Volume 11.6 fL (9.1-12.4); NEUTROPHILS ABSOLUTE AUTO 10.68 K/mm3 (1.96-9.15); NEUTROPHILS PERCENT AUTO 67 % (41-73); Platelet Count 506 K/mm3 (150-400); RDW Coefficient Variation 14.1 % (11.7-14.2); RDW Standard Deviation 50.9 fL (35.1-46.3); Red Blood Cell Count 3.73 M/mm3 (4.30-5.90); White Blood Cell Count 15.88 K/mm3 (4.00-11.30)
[2023-03-04 05:06] LABS: Albumin, Blood 2.2 g/dL (3.4-5.0); Anion Gap Unable to Calculate mmol/L (6-16); Blood Urea Nitrogen 23 mg/dL (8-24); Bun/Creatinine Ratio 40.2 (12.0-20.0); CO2, Blood 28 mmol/L (21-32); Calcium, Blood 8.3 mg/dL (8.5-10.1); Chloride, Blood 114 mmol/L (98-108); Creatinine, Blood 0.57 mg/dL (0.60-1.20); Glomerular Filtration Rate 99 (60-); Glucose, Blood 105 mg/dL (70-99); Magnesium, Blood 1.8 mg/dL (1.6-2.4); Phosphorus, Blood 1.7 mg/dL (2.5-4.9); Potassium, Blood 3.7 mmol/L (3.5-5.5); Sodium, Blood 141 mmol/L (136-145)
[2023-03-04 07:43] VITALS: BP 116/102
[2023-03-04 14:23] VITALS: BP 113/58
--- NOTE | 2023-03-04 16:36 | NUR ---
SHIFT SUMMARY: NO NEW ACUTE CHANGES IN PATIENT CONDITION THIS SHIFT. PATIENT ALERT AND ORIENTED TO SELF AND PLACED ONLY. AGUA CALIENTE AND SLOW TO RESPOND WHEN ASKED TO QUESTIONS. PATIENT DECLINED TO SIT-UP IN THE CHAIR THIS SHIFT. THIS RN SPOKE c DR. MARROQUIN DURING PATIENT ROUNDING THIS PM c REGARDS TO MAZARIEGOS WAS PLACED FOR RETENTION. PER DR. MARROQUIN TO LIVE MAZARIEGOS IN PATIENT NEEDS TO SEE UROLOGIST OUTPATIENT FOR FURTHER ASSESSMENT. MAZARIEGOS PATENT DRAINING CHRIS URINE TO GRAVITY. PATIENT RECEIVED BEDBATH AND LINEN CHANGED THIS SHIFT. ATTENDS CHANGED AND REPOSITIONED T/O SHIFT. IV TO L FOREARM SALINE LOCKED. PATIENT RECEIVED SCHEDULED MEDS PER EMAR. VITAL SIGNS REVIEWED. BED ALARM ON FOR SAFETY. CALL LIGHT IN REACH.
[2023-03-04 19:43] VITALS: BP 121/74
[2023-03-05 04:19] VITALS: BP 136/67
--- NOTE | 2023-03-05 04:36 | NUR ---
SHIFT SUMMARY - NO ACUTE CHANGES THROUGHOUT THIS SHIFT. PT IS ABLE TO RESPOND TO YES/NO QUESTIONS. PT AWAKENS EASILY WHEN SPOKEN TO, IS ALERT TO PERSON. PT IS SLOW TO RESPOND, AND CONTINUES TO BE PRETTY RETICENT TO SPEAK. PT DENIED ANY PAIN WHEN ASKED. MAZARIEGOS IN PLACE FOR RETENTION - CLEAR YELLOW URINE OUT. PT IS ABLE TO FEED HIMSELF, AND DRINK FLUIDS BY HIMSELF. CALL LIGHT WITHIN REACH. FLUIDS AT BEDSIDE. BED IN LOW POSITION. BED ALARM ON FOR PT SAFETY. WILL CONTINUE TO MONITOR UNTIL AM SHIFT CHANGE.
[2023-03-05 07:18] VITALS: BP 111/56
[2023-03-05 15:03] VITALS: BP 107/65
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
--- NOTE | 2023-03-05 18:28 | NUR ---
PATIENT A/O TO SELF AND FAMILY. VERY SLOW TO RESPOND AND SEEMS TO HAVE DIFFICULTY WITH WORD FINDING. MAZARIEGOS TO GRAVITY WITH ADEQUATE U/O. PT/OT ATTEMPTED TO WORK WITH PATIENT TODAY, BUT PATIENT HAD VERY LITTLE INTEREST IN WORKING WITH THEM. PATIENT ORDERED TRAMADOL FOR BACK PAIN THAT SEEMS TO HAVE BEEN EFFECTIVE. PATIENT UNABLE TO RATE PAIN, BUT SEEMED TO REST WELL AFTER DOSE GIVEN. TURNING Q2 HOURS. FRIEND EDISON AT BEDSIDE THIS EVENING AND ASSISTED PATIENT WITH DINNER. FALL PRECAUTIONS IN PLACE, PATIENT HAS NOT TRIED TO GET OOB UNASSISTED TODAY.
[2023-03-05 19:44] VITALS: BP 108/50
[2023-03-06 02:21] VITALS: BP 132/64
--- NOTE | 2023-03-06 04:53 | NUR ---
SHIFT SUMMARY A/O TO SELF, ABLE TO ANSWER YES/NO QUESTIONS, SLOW TO RESPOND. DENIES CHEST PAIN/PRESSURE OR SOB. SPO2 >92% ON RA. MAZARIEGOS PATENT AND DRAINING TO GRAVITY. VSS, NO ACUTE CHANGES AT THIS TIME. BED IN LOWEST POSITION WITH CALL LIGHT IN REACH. WILL CONTINUE TO MONITOR AND REPORT TO ONCOMING RN.
[2023-03-06 07:25] VITALS: BP 119/62
[2023-03-06 15:21] VITALS: BP 118/58
[2023-03-06 20:05] VITALS: BP 120/64
--- NOTE | 2023-03-07 03:17 | NUR ---
SHIFT SUMMARY NOC PT A/O TO SELF. SLOW TO RESPOND AND CAN SOMETIMES ANSWER Y/N TO QUESTIONS. PT WAS NOT ABLE TO TAKE EVENING PO RX DUE TO ASPIRATION RISK OF BEING TOO SLEEPY. PT REFUSED HEPARIN SC INJECTION. PT HAS MAZARIEGOS IN PLACE DRAINING YELLOW URINE TO GRAVITY. PT IS CURRENTLY RESTING WATCHING TV WITH BED ALARM ON, BED IN LOWEST POSITION, AND CALL LIGHT WITHIN REACH.
[2023-03-07 03:55] VITALS: BP 108/63
[2023-03-07 06:59] LABS: BASOPHILS ABSOLUTE AUTO 0.06 K/mm3 (0.00-0.23); BASOPHILS PERCENT AUTO 1 % (0-2); EOSINOPHILS ABSOLUTE AUTO 0.17 K/mm3 (0.00-0.68); EOSINOPHILS PERCENT AUTO 2 % (0-6); Hematocrit 38.2 % (37.0-53.0); Hemoglobin 12.6 g/dL (13.5-17.5); IMMATURE GRAN ABSOLUTE AUTO 0.08 K/mm3 (0.00-0.10); IMMATURE GRAN PERCENT AUTO 1 % (0-1); LYMPHOCYTES PERCENT AUTO 10 % (21-46); MONOCYTES ABSOLUTE AUTO 0.95 K/mm3 (0.16-1.47); MONOCYTES PERCENT AUTO 12 % (4-13); Mean Corpuscular HGB 33.1 pg (26.0-34.0); Mean Corpuscular Volume 100 fL (80-100); Mean Platelet Volume 11.3 fL (9.1-12.4); NEUTROPHILS ABSOLUTE AUTO 5.85 K/mm3 (1.96-9.15); NEUTROPHILS PERCENT AUTO 74 % (41-73); Platelet Count 407 K/mm3 (150-400); RDW Coefficient Variation 14.6 % (11.7-14.2); RDW Standard Deviation 52.4 fL (35.1-46.3); Red Blood Cell Count 3.81 M/mm3 (4.30-5.90); White Blood Cell Count 7.91 K/mm3 (4.00-11.30)
[2023-03-07 07:15] LABS: Magnesium, Blood 1.9 mg/dL (1.6-2.4)
[2023-03-07 07:17] LABS: Albumin, Blood 2.6 g/dL (3.4-5.0); Anion Gap Unable to Calculate mmol/L (6-16); Blood Urea Nitrogen 22 mg/dL (8-24); Bun/Creatinine Ratio 36.1 (12.0-20.0); CO2, Blood 29 mmol/L (21-32); Calcium, Blood 8.7 mg/dL (8.5-10.1); Chloride, Blood 108 mmol/L (98-108); Creatinine, Blood 0.61 mg/dL (0.60-1.20); Glomerular Filtration Rate 97 (60-); Glucose, Blood 95 mg/dL (70-99); Phosphorus, Blood 2.3 mg/dL (2.5-4.9); Potassium, Blood 3.9 mmol/L (3.5-5.5); Sodium, Blood 135 mmol/L (136-145)
[2023-03-07 07:48] VITALS: BP 110/62
[2023-03-07 15:46] VITALS: BP 108/55
--- NOTE | 2023-03-07 17:36 | NUR ---
SHIFT SUMMARY PATIENT SLEEPING INTERMITTENTLY THROUGHOUT DAY, AWAKES EASILY, ATE 75% OF LUNCH AND ORIENTED TO SELF. ABLE TO COMMUNICATE PAIN ISSUES WITH FREQUENT ROUNDING. PATIENT DOES NOT USE CALL LIGHT. BED ALARM ON. PAIN TREATED PER EMAR. WILL CONTINUE TO MONITOR.
[2023-03-07 21:44] VITALS: BP 117/59
[2023-03-08 05:22] VITALS: BP 113/60
[2023-03-08 07:17] VITALS: BP 100/57
--- NOTE | 2023-03-08 07:46 | NUR ---
Jose Luis was very quiet overnight. He slept on and off, and gave no indications of pain or discomfort. He refused his dinner last night, but this morning, he agreed to drink a chocolate ensure. within minutes, he had drank the entire box. He is pleasant and oriented times one. Cooperative with care.
[2023-03-08 15:25] VITALS: BP 100/54
--- NOTE | 2023-03-08 17:10 | NUR ---
SHIFT SUMMARY PT AOX1, UNABLE TO CARRY ON A CONVERSATION. HE IS WITHDRAWN AND OFTEN JUST STARES WHEN ASKED A QUESTION. BED BATH WAS GIVEN TODAY AND CATH CARE PROVIDED. CATHETER IS DRAINING YELLOW URINE. HE HAS DRANK A FEW ENSURES TODAY, HE ENJOYS THEM. BUT HE IS TIMID AND SEEMS SUSPICIOUS OF CARE, IT HELPS TO WALK HIM THROUGH THE PROCESS. DR. SEAMAN WAS NOTIFIED TODAY TO EVALUATE FOR POTENTIAL NEED FOR GUARDIANSHIP. HE TOLERATES TAKING HIS MEDICATIONS WITH APPLESAUCE WELL. CALL LIGHT IS WITHIN REACH, BED IN THE LOWEST POSITION. WILL REPORT TO ONCOMING NURSE.
[2023-03-08 19:50] VITALS: BP 105/53
[2023-03-09 02:42] VITALS: BP 109/57
[2023-03-09 07:24] VITALS: BP 102/61
--- NOTE | 2023-03-09 07:45 | NUR ---
Rn summary: Patient is A/Ox2. Patient is very [place]. He is quiet and cooperative. Pt had a BM this am. Mepilex to coccyx for protection. Plummer cath draining with yellow urine. Pt repositioned plus he is able to turn self. Bed alarm and call light in reach.
[2023-03-09 14:29] VITALS: BP 112/62
--- NOTE | 2023-03-09 15:24 | NUR ---
SHIFT SUMMARY MR HEAD IS ORIENTATED TO HIS OWN NAME, UNABLE TO ANSWER OTHER ORIENTATION QUESTIONS. CONFUSED CONVERSATION. JAMUL. ABLE TO TELL ME HE HAS CHRONIC LOWER BACK PAIN. HAS MAZARIEGOS CATHETER IN PLACE. BLADDER TRAINING FOR 24HOURS STARTED 03/09 AT 1140HRS. SO FAR HE DENIES URGE TO NEED TO VOID. MOIST NON-PRODUCTIVE COUGH, ENCOURAGED TURNING AND IS. POOR TECHNIQUE WITH IS. HE HAS REFUSED TO GET OUT OF BED TODAY DESPITE BEING ASKED SEVERAL TIMES AND RATIONALLE GIVEN. INCONTINENT OF STOOL. BED LOW, CALL LIGHT IN REACH. BED ALARM ON.
--- NOTE | 2023-03-09 15:40 | NUR ---
Unfortunately the pt's friend is no longer returning calls, and it appears pt will end up with a professional guardian. He has not been participating with therapy in any meaningful way.
[2023-03-09 22:42] VITALS: BP 99/40
--- NOTE | 2023-03-10 05:51 | NUR ---
INVENTORY CONTROL/SHIPPING RECEIVING SUMMARY PT IS A/OX TO SELF ONLY. PT NOT ABLE TO MAKE NEEDS KNOWN. 24 HOUR BLADDER TRAINING STARTED DURING DAY SHIFT AND MAZARIEGOS TUBE WAS CLAMPED. PT DENIED URGE TO VOID. BLADDER SCAN SHOWED 700MLS OF URINE; UNCLAMPED MAZARIEGOS TUBE AND DISCONTINUED BLADDER TRAINING. WILL ADVISE ONCOMING NURSE. PT TOLERATED PO MEDS W/CHOCOLATE ENSURE. PT PLEASANT AND COOPERATIVE. BED ALARM SET. CALL LIGHT ACCESSIBLE.
[2023-03-10 08:26] VITALS: BP 119/95
[2023-03-10 15:46] VITALS: BP 124/65
--- NOTE | 2023-03-10 16:46 | NUR ---
SHIFT SUMMARY: PT REFUSED TO GET UP TO CHAIR FOR MEALS. EDUCATED ON BENEFITS OF MOBILITY. HIS MAZARIEGOS WAS DC'ED. MONITORING RETENTION WITH BLADDER SCAN Q6. INITIALLY REFUSED MEDICATIONS BUT TOOK THEM IN CHOCOLATE PUDDING. PT BATHED AND DRESSED WITH CALL LIGHT IN REACH AND BED IN LOWEST POSITION FOR SAFETY. WILL CONTINUE TO PROVIDE CARE UNTIL CHANGE OF SHIFT.
[2023-03-10 21:50] VITALS: BP 104/59
[2023-03-10 22:54] LABS: Source, Urine Foley catheter
[2023-03-10 22:57] LABS: Bilirubin, Urine Neg (Neg); Blood, Urine 5+ (Neg); Glucose Qualitative, Urine Neg (Neg); Ketones, Urine Neg (Neg); Leukocyte Esterase, Urine 3+ (Neg); Nitrite, Urine Neg (Neg); Protein, Urine 3+ (Neg); Specific Gravity, Urine 1.015 (1.003-1.022); Urobilinogen, Urine NORM (Normal); pH, Urine 6.5 (5.0-8.0)
[2023-03-10 23:23] LABS: Appearance, Urine Hazy (Clear); Color, Urine Yellow (P-Yellow)
[2023-03-10 23:25] LABS: Amorphous Light (0-Heavy); Bacteria Few /hpf; Squamous Epithelial Cells Rare /hpf (Few); White Blood Cells, Urine 50-100 /hpf (0-5)
[2023-03-11 03:17] VITALS: BP 118/57
--- NOTE | 2023-03-11 05:12 | NUR ---
SHOP GIRL SUMMARY PT A/OX TO SELF. PT IN BED T/O SHIFT AND HAS CONT TO REFUSE TO GET OOB. PT NOT SWALLOWING ORAL MEDS; POCKETING IN CHEEK AND SPITING OUT. NEW MAZARIEGOS PLACED DUE TO RETENTION. WELL TOLERATED. PT UNABLE TO MAKE NEEDS KNOWN. BED ALARM SET. CALL LIGHT ACCESSIBLE.
[2023-03-11 07:31] VITALS: BP 119/69
--- NOTE | 2023-03-11 10:33 | NUR ---
ROOM TRANSFER PT TRANSFERRED ROOMS ON MEDICAL FLOOR AT APPROX 0930. PT MOVED FROM ROOM 352 TO 302. ATTEMPT TO NOTIFY [facility] PT'S ADVOCATE WAS MADE, BUT PHONE NUMBER WAS DISCONNECTED. REPORT GIVEN TO KAREY RACHEL RN.
--- NOTE | 2023-03-11 13:01 | NUR ---
ASSUMED CARE OF PATIENT UPON HIS TRANSFER FROM ROOM 352 AT 0915, RECEIVED FTF REPORT FROM Kari PAYNE RN. PT IS ALERT, BUT DOES NOT ANSWER QUESTIONS. REFUSED TO TAKE ANY PO MEDICATIONS, AND DID NOT GET INTO CHAIR FOR LUNCH. TOLD DR. MAO HE WAS COLD, GAVE WARM BLANKET. IS CURRENTLY LYING IN BED WITH HEAD COVERED BY BLANKET. BED ALARM IS ON, CALL LIGHT IN REACH.
[2023-03-11 15:17] VITALS: BP 105/60
--- NOTE | 2023-03-11 19:54 | NUR ---
SHIFT SUMMARY: NO ACUTE EVENTS SINCE TRANSFER. REFUSED ALL MEDICATIONS TODAY. APPEARED A LITTLE AFRAID OF NEW ROOM AND STAFF. EATING SMALL AMOUNTS OF MEALS, LIKES CHOCOLATE PUDDING, GOOD PO FLUID INTAKE. MAZARIEGOS DRAINING ADEQUATE URINE. MOSTLY NON VERBAL.
[2023-03-11 19:57] VITALS: BP 116/54
[2023-03-12 02:58] VITALS: BP 104/85
--- NOTE | 2023-03-12 04:25 | NUR ---
NIGHT SHIFR SUMMARY VSS. COOPERATIVE WITH MEDS, TAKES THEM WITH CHOCOLATE PUDDING. ALERT TO VERBAL CUES. MAZARIEGOS DRAINING. REPOSITIONED INTERMITTENTLY FOR COMFORT AND SKIN CARE. MEPILEX ON COCCYX INTACT - FOR PROTECTION. HAS BEEN RESTING QUIETLY WITH OCCASIONAL INTERRUPTION. CALL LIGHT IN REACH. RAILS UP X 3 FOR SAFETY. SOME DIMINISHED LUNG SOUNDS WITH AUSCULTATION, OTHERWISE NO NOTED S/S ACUTE DISTRESS. WILL CONTINUE TO MONITOR
[2023-03-12 07:31] VITALS: BP 111/69
[2023-03-12 13:11] LABS: BASOPHILS ABSOLUTE AUTO 0.07 K/mm3 (0.00-0.23); BASOPHILS PERCENT AUTO 1 % (0-2); EOSINOPHILS ABSOLUTE AUTO 0.07 K/mm3 (0.00-0.68); EOSINOPHILS PERCENT AUTO 1 % (0-6); Hematocrit 39.8 % (37.0-53.0); Hemoglobin 13.1 g/dL (13.5-17.5); IMMATURE GRAN ABSOLUTE AUTO 0.19 K/mm3 (0.00-0.10); IMMATURE GRAN PERCENT AUTO 2 % (0-1); LYMPHOCYTES ABSOLUTE AUTO 2.35 K/mm3 (0.84-5.20); LYMPHOCYTES PERCENT AUTO 27 % (21-46); MONOCYTES ABSOLUTE AUTO 0.89 K/mm3 (0.16-1.47); MONOCYTES PERCENT AUTO 10 % (4-13); Mean Corpuscular HGB 33.1 pg (26.0-34.0); Mean Corpuscular HGB Conc 32.9 g/dL (31.5-36.5); Mean Corpuscular Volume 101 fL (80-100); Mean Platelet Volume 11.5 fL (9.1-12.4); NEUTROPHILS ABSOLUTE AUTO 5.02 K/mm3 (1.96-9.15); NEUTROPHILS PERCENT AUTO 58 % (41-73); NRBC ABSOLUTE 0.02 K/mm3 (0.00-0.02); NRBC Auto 0.2 /100 WBC (0.0-0.2); Platelet Count 345 K/mm3 (150-400); RDW Coefficient Variation 14.3 % (11.7-14.2); Red Blood Cell Count 3.96 M/mm3 (4.30-5.90); White Blood Cell Count 8.59 K/mm3 (4.00-11.30)
[2023-03-12 13:28] LABS: Bun/Creatinine Ratio 29.7 (12.0-20.0); Calcium, Blood 8.4 mg/dL (8.5-10.1); Creatinine, Blood 0.67 mg/dL (0.60-1.20); Potassium, Blood 3.8 mmol/L (3.5-5.5)
[2023-03-12 15:51] VITALS: BP 101/61
--- NOTE | 2023-03-12 17:15 | NUR ---
SHIFT SUMMARY: PT TOOK MEDICATIONS CRUSHED IN CHOCOLATE PUDDING. FLOMAX DC'D. HE WAS UP IN A CHAIR FOR LUNCH AND THEN BACK IN BED. UNMOTIVATED TO CONTINUE TO GET UP. MEPILEX ON COCCYX TO PREVENT SKIN BREAKDOWN. MAZARIEGOS IN PLACE FOR URINARY RETENTION. CALL LIGHT IN REACH AND BED IN LOWEST POSITION FOR SAFETY. WILL CONTINUE TO PROVIDE CARE UNTIL CHANGE OF SHIFT.
[2023-03-12 19:28] VITALS: BP 97/65
--- NOTE | 2023-03-13 04:37 | NUR ---
HAM PUMPER SUMMARY TEMP ELEVATED, BUT OTHERWISE VSS. MORE RESPONSIVE TO QUESTIONS ASKED THAN NOTED 24 HRS AGO. MAZARIEGOS DRAINING AND WAS INCONT OF BOWEL. TOLERATED MEDS IN CHOCOLATE PUDDING. HAS BEEN RESTING AT INTERVALS. CALL LIGHT IN REACH. WILL CONTINUE TO MONITOR
[2023-03-13 04:52] VITALS: BP 99/59
[2023-03-13 07:22] VITALS: BP 119/60
[2023-03-13 16:37] VITALS: BP 105/64
--- NOTE | 2023-03-13 17:19 | NUR ---
SHIFT SUMMARY: PT GOT A BEDBATH AND TRANSFERED TO THE CHAIR WITH 2P MAX ASSIST. HE STAYED UP IN A CHAIR ALL MORNING. HE IS VERY MOTIVATED BY MILKSHAKES. HE HAS SOME NEW REDNESS AND SWELLING AT THE INSERTION OF HIS MAZARIEGOS. BACITRACIN ZINC OINTMENT APPLIED AFTER CATH CARE. PT CONTINUES TO COMPLAIN OF BEING CHILLED BUT DOES NOT LIKE TO WEAR A GOWN. HE IS IN BED UNDER WARMED BLANKETS FOR COMFORT WITH A CALL LIGHT IN REACH AND THE BED IN THE LOWEST POSITION FOR SAFETY. WILL CONTINUE TO PROVIDE CARE UNTIL CHANGE OF SHIFT.
[2023-03-13 20:51] VITALS: BP 113/65
--- NOTE | 2023-03-14 03:18 | NUR ---
FLAME CUTTING SUPERVISOR SUMMARY SLIGHT FEVER, OTHERWISE, VSS. EXTRA COVERS REMOVED AND FLUIDS ENCOURAGED. WILL CONTINUE TO MONITOR/ASSESS. VOICED HE WAS OK EACH TIME NURSE ASSESSED HIM. MAZARIEGOS DRAINING YELLOW. HAS BEEN RESTING QUIETLY WITH OCCAIONAL INTERUPTION OF COUGHING. CURRENTLY RESTING QUIETLY. CALL LIGHT IN REACH. RAILS UP X 3, BED ALARM ON FOR SAFETY
[2023-03-14 07:18] VITALS: BP 109/62
[2023-03-14 16:10] VITALS: BP 112/58
--- NOTE | 2023-03-14 17:36 | NUR ---
SHIFT SUMMARY NO ACUTE CHANGES DURING SHIFT. PT CONFUSED, VERY LIMITED SPEACH. PT REMAINS ON BR. YAIR SEGOVIA IN PLACE, DRAINING TO GRAVITY. PT PENDING GUARDIANSHIP AND PLACEMENT. WILL CONTINUE TO MONITOR. CALL LIGHT WITHIN REACH.
[2023-03-14 19:08] VITALS: BP 102/54
[2023-03-15 03:26] VITALS: BP 116/65
--- NOTE | 2023-03-15 04:23 | NUR ---
SHIFT UNREMARKABLE. PT AOX1-2. ABLE TO TELL ME HE IS IN [place] AND WHO HE IS, NOTHING ELSE. NOT VERY VERBAL, RESPONDS TO DIRECTIONS BUT TAKES LONG TIME TO PROCESS QUESTIONS AND RESPOND, DOES NOT ALWAYS RESPOND OR RESPOND APPROPRIATELY. PT HAS BEEN PLEASANT AND COOPERATIVE WITH CARE. NOT IMPULSIVE. MAZARIEOGS IN PLACE AND DRAINING WELL, NO LEAKAGE OR OTHER PROBLEMS NOTED. BED LOCKED IN LOWEST POSITION. CALL LIGHT LEFT WITHIN REACH.
[2023-03-15 07:26] VITALS: BP 118/72
[2023-03-15 14:33] VITALS: BP 120/71
--- NOTE | 2023-03-15 18:17 | NUR ---
SHIFT SUMMARY: PT A&O TO SELF THIS SHIFT. PT REFUSED/WOULD NOT COOPERATE WITH MORNING MEDICATIONS. WHEN ASKING PT TO OPEN MOUTH FOR CRUSHED MEDS, PT WOULD CLOSE MOUTH TIGHTER. PT ABLE TO FEED SELF WITH [facility] SOFT DIET. POSS D/C TO [facility] NEXT SUNDAY PER INSTRUMENT ASSEMBLER NOTE. MAZARIEGOS IN PLACE DRAINING TO GRAVITY. NO C/O PAIN OR N/V. BED BATH GIVEN BY NETWORK DEVELOPER. CALL LIGHT IN REACH. BED IN LOWEST POSITION. WILL CONTINUE TO MONITOR.
[2023-03-15 19:18] VITALS: BP 127/78
--- NOTE | 2023-03-16 03:42 | NUR ---
SHIFT UNREMARKABLE. PT TOOK 2100 HEPARIN BUT REFUSED ALL ORAL MEDICATIONS. SOMEWHAT MORE TALKATIVE THAN LAST NIGHT. ABLE TO HOLD BRIEF CONVERSATION, SLOW TO RESPOND. MOSTLY FOLLOWS DIRECTIONS APPROPRIATELY. REMAINS AOX1-2. SLEPT THROUGH MOST OF SHIFT. DENIES PAIN OR DISCOMFORT. MAZARIEGOS REMAINS IN PLACE AND DRAINING WELL. PT RESISTANT TO REPOSITIONING AND TENDS TO FALL INTO SAME POSITION IN BED SHORTLY AFTER ANY REPOSITIONING. BED LOCKED IN LOWEST POSITION. CALL LIGHT LEFT WITHIN REACH.
[2023-03-16 04:39] VITALS: BP 133/80
[2023-03-16 07:37] VITALS: BP 132/80
[2023-03-16 14:43] VITALS: BP 107/64
--- NOTE | 2023-03-16 16:40 | NUR ---
SHIFT SUMMARY: DIFFICULT TO ASSESS ORIENTATION THIS SHIFT. PT WOULD ENGAGE IN SOME CONVERSATION AND ANSWER A FEW QUESTIONS THEN STARE BLANKLY IF NOBODY WAS TALKING. NO SIGNIFICANT CHANGES THIS SHIFT. PT CONTINUES TO REFUSE PO MEDICATIONS. I WOULD ASK PT IF HE WOULD TAKE MEDICATIONS AND HE WOULD STARE AT ME OR TURN HIS HEAD. PT TOOK HEPARIN SHOT WITH AM MED PASS WELL KAYLI AND LIQUID POTASSIUM. ENTION DUE TO BONY PROMINENCES. PT HAD SMEAR OF INCONTINENT BM AND APPEARED TO BE GOING AT TIME OF CHANGE. MAZARIEGOS IN PLACE AND DRAINING TO GRAVITY. SOME REDNESS AND DISCHARGE AT TOP OF PENIS. CLEANED APPROPRIATELY. CALL LIGHT IN REACH. BED IN LOWEST POSITION. WILL CONTINUE TO MONTITOR.
[2023-03-16 21:13] VITALS: BP 115/67
[2023-03-17 02:52] VITALS: BP 112/68
--- NOTE | 2023-03-17 03:53 | NUR ---
SHIFT UNREMARKABLE. PT HAS SLEPT THROUGH MUCH OF SHIFT. PT WAS NOT VERY VERBAL AT TIME OF ASSESSMENT AND ONLY OFFERED ONE WORD RESPONSES. AWOKE PATIENT EARLY THIS MORNING TO PERFORM BLADDER SCAN. 550 ML EMPTIED FROM MAZARIEGOS CATHETER AT THAT TIME. UPON WAKING, PT WAS MORE VERBAL, MORE ORIENTED, AND PLEASANT. COOPERATIVE WITH CARE. BLADDER SCAN DIFFICULT TO COMPLETE, SEEMINGLY DUE TO VERY LITTLE URINE IN BLADDER. MAZARIEGOS INTACT, DRAINING WELL. PT DENIES PAIN OR DISCOMFORT. BED LOCKED IN LOWEST POSITION. CALL LIGHT LEFT WITHIN REACH.
[2023-03-17 06:48] LABS: Albumin, Blood 2.5 g/dL (3.4-5.0); Anion Gap 4 mmol/L (6-16); Blood Urea Nitrogen 20 mg/dL (8-24); Bun/Creatinine Ratio 34.1 (12.0-20.0); CO2, Blood 27 mmol/L (21-32); Calcium, Blood 9.1 mg/dL (8.5-10.1); Chloride, Blood 110 mmol/L (98-108); Creatinine, Blood 0.59 mg/dL (0.60-1.20); Glomerular Filtration Rate 98 (60-); Glucose, Blood 104 mg/dL (70-99); Phosphorus, Blood 2.4 mg/dL (2.5-4.9); Potassium, Blood 4.3 mmol/L (3.5-5.5); Sodium, Blood 141 mmol/L (136-145)
[2023-03-17 07:17] VITALS: BP 129/65
[2023-03-17 14:44] VITALS: BP 114/64
--- NOTE | 2023-03-17 19:00 | NUR ---
NO ACUTE CHANGES, ABLE TO MAKE NEEDS KNOWN AT TIMES, CALL LIGHT WITH IN REACH, REFUSED MEDICATIONS TODAY, DENIES PAIN, WILL RELAT TO PM
[2023-03-17 19:52] VITALS: BP 106/68
--- NOTE | 2023-03-18 04:37 | NUR ---
PROGRESSIVE ASSEMBLER AND FITTER SUMMARY NO ACUTE CHANGES. PT REFUSED MEDICATIONS THIS EVENING. CATH CARE WAS PERFORMED, PT HAS SOME REDNESS TO THE TIP OF HIS PENIS. PT HAS BEEN SLEEPING A MAJORITY OF THE NIGHT. REPOSITIONED T/O THE NIGHT. CALL LIGHT IS WITHIN REACH, BED IN THE LOWEST POSITION. WILL REPORT TO ONCOMING NURSE.
[2023-03-18 05:08] VITALS: BP 118/73
[2023-03-18 08:00] VITALS: BP 115/71
[2023-03-18 15:52] VITALS: BP 94/73
[2023-03-18 19:22] VITALS: BP 112/67
[2023-03-19 03:36] VITALS: BP 112/60
[2023-03-19 07:45] VITALS: BP 112/63
--- NOTE | 2023-03-19 13:05 | NUR ---
AM ASSESSMENT I WAS PRESENT DURING AND AGREE WITH THE STUDENT RN ROOPA'S AM ASSESSMENT AND DOCUMENTATION ON THIS PATIENT
[2023-03-19 15:58] VITALS: BP 108/75
--- NOTE | 2023-03-19 18:28 | NUR ---
KENDALL HAD AN UNEVENTFUL SHIFT OVERALL, HIS SON KENDALL TEJADA CAME TO VISIT AND SPEAK WITH CASE MANAGEMENT. HE IS AWAITING DISCHARGE TO [facility]. KENDALL REFUSED ALL PO MEDS TODAY DESPITE MANY ATTEMPTS AND ENCOURAGEMENT, BUT ALLOWED ME TO PLACE A LIDOCAINE PATCH ON HIS LOW BACK AND ADMINISTER SUBQ HEPARIN. I NOTED DURING CATHETER CARE THAT HE HAS THICK WHITE TO LIGHT BROWN PENILE DISCHARGE, AND REDNESS AROUN HIS MEATUS. RESPONSES TO QUESTIONS WERE APPROPRIATE BUT SLOW AND SHORT, MOSTLY YES/NO, PATIENT WAS AWARE OF HIS LOCATION
--- NOTE | 2023-03-19 18:37 | NUR ---
PT IS ALERT ORIENTED TO SELF AND PLACE, THE PT HAS BEEN NON COMPLIANT WITH TAKEN HIS MEDICATIONS T/O THE DAY. PT DRINKS ENSURES BUT OTHERWISE HAS BEEN DECLINING MOST OF HIS MEALS. THE PT APPEARS TO BE BREATHING EASILY ON RA AT THIS TIME, CALL LIGHT IN REACH. WILL CONTINUE TO MONITOR AND ASSESS FROM [facility]
[2023-03-19 20:08] VITALS: BP 123/73
[2023-03-20 04:24] VITALS: BP 115/78
--- NOTE | 2023-03-20 04:57 | NUR ---
NO ACUTE CHANGES
[2023-03-20 07:25] VITALS: BP 117/61
[2023-03-20] MEDS ORDERED: JUVEN PACKET1 EAC3 PO (10:26)
[2023-03-20] MEDS ORDERED: ASPI81CH PO (10:26)
[2023-03-20] MEDS ORDERED: BISA10S PR (10:26)
[2023-03-20] MEDS ORDERED: DOCU100 PO (10:27)
[2023-03-20] MEDS ORDERED: LIDO700A20 TOP (10:27)
[2023-03-20] MEDS ORDERED: POTCHL20ER PO (10:28)
[2023-03-20] MEDS ORDERED: K-Phos Origina500 MG PO (10:29)
[2023-03-20] MEDS ORDERED: SENN187 PO (10:29)
[2023-03-20] MEDS ORDERED: Acetaminophen650 M1 PO (10:30)
--- NOTE | 2023-03-20 14:25 | NUR ---
pt discharged PT DISCHARGED TO ASSISTED LIVING PT WAS DRESSED PRIOR TO DC. FAMILY WAS NOTIFIED OF PT DC. THE PT TRANSFERED VIA WHEELCHAIR ACCOMPANIED BY [employer]. BELONGINGS RELEASED TO THE PT
== END 2023-03-20 14:07 | disposition home or self-care (01) | DRG 682 ==
LOC: ER 20:31 → ICUW 02-25 01:14 → MEDS 02-25 01:14 → ICUE 02-25 01:14 → MEDS 02-28 14:50 → ENPENDDIS 03-20 09:12 → MEDS 03-20 14:07
PROVIDERS: Emergency Medicine; Family Medicine; Internal Medicine; Internal Medicine Critical Care Medicine; Internal Medicine Nephrology; Nurse Practitioner Women's Health; ADMIT Internal Medicine
PROC: 4A033R1 Measurement of Arterial Saturation, Peripheral, Percutaneous Approach (ICD-10-PCS; 2023-02-24)
PROC: 4A133R1 Monitoring of Arterial Saturation, Peripheral, Percutaneous Approach (ICD-10-PCS; 2023-02-24)
PROC: 0T9B70Z Drainage of Bladder with Drainage Device, Via Natural or Artificial Opening (ICD-10-PCS; principal; 2023-02-25)
DX: N17.9 Acute kidney failure, unspecified (principal); E43 Unspecified severe protein-calorie malnutrition; G92.8 Other toxic encephalopathy; J18.9 Pneumonia, unspecified organism; E87.21 Acute metabolic acidosis; M62.82 Rhabdomyolysis; E87.0 Hyperosmolality and hypernatremia; Z68.1 Body mass index [BMI] 19.9 or less, adult; E87.5 Hyperkalemia; F15.10 Other stimulant abuse, uncomplicated; E86.0 Dehydration; R74.8 Abnormal levels of other serum enzymes; E16.2 Hypoglycemia, unspecified; R33.9 Retention of urine, unspecified; N32.0 Bladder-neck obstruction; N13.6 Pyonephrosis; L89.151 Pressure ulcer of sacral region, stage 1; E87.6 Hypokalemia; R73.9 Hyperglycemia, unspecified; F01.50 Vascular dementia, unspecified severity, without behavioral disturbance, psychotic disturbance, mood disturbance, and anxiety; M54.9 Dorsalgia, unspecified; R68.0 Hypothermia, not associated with low environmental temperature; G89.29 Other chronic pain; I67.9 Cerebrovascular disease, unspecified; E83.39 Other disorders of phosphorus metabolism; Z86.73 Personal history of transient ischemic attack (TIA), and cerebral infarction without residual deficits
CPT/HCPCS: 36415; 36600; 51702; 70450; 71045; 71046; 76770; 80047; 80048; 80053; 80069; 80178; 80400; 81001; 82010; 82140; 82248; 82330; 82533; 82550; 82553; 82570; 82693; 82803; 82947; 83605; 83690; 83735; 83880; 83930; 83935; 84100; 84156; 84295; 84300; 84443; 84540; 84600; 85014; 85025; 85610; 86334; 87040; 87086; 92526; 92610; 93005; 93010; 94760; 96365-59; 96375-59; 97110; 97116; 97162; 97165; 97530; 99285-25; A9270; G0480; J0612; J0696; J0834; J1644; J1815; J2543; J2597; J3475; J3480; J7030; J7060; J7070; J7120; J7131; J7799